=== PATIENT | female | born 1950 | race Caucasian/White ===

== ENCOUNTER 2016-11-10 12:49 | Emergency (ER) | payer BC ==
[2016-11-10 12:55] VITALS: BP 137/80
[2016-11-10 13:14] LABS: BILIRUBIN,URINE NEGATIVE (NEGATIVE); PH,URINE 5.5 PH (5.0-7.5)
[2016-11-10 13:15] LABS: UA CHARGE (STRIP ONLY) YES; UR CULTURE IF IND NOT INDICATED
--- NOTE | 2016-11-10 13:18 | ED Physician Documentation ---
PD HPI FEMALE - Stated complaint Stated Complaint: FEMALE - Chief complaint Chief Complaint: UTI - History obtained from History obtained from: Patient - History of Present Illness Timing - onset: How many days ago (1) Timing - duration: Days (1) Timing - details: Gradual onset Pain level max: 2 Pain level max: 2 Associated symptoms: Dysuria, Urinary frequency. No: Fever, Chest/shoulder pain , Abdominal pain, Back pain, Pelvic pain, Vaginal pain, Vaginal bleeding, Vaginal discharge Similar symptoms before: Diagnosis (interstitial cystitis vs UTI.) Recently seen: Not recently seen Review of Systems Constitutional: denies: Fever, Chills Nose: denies: Rhinorrhea / runny nose, Congestion Respiratory: denies: Cough GI: denies: Abdominal Pain, Nausea, Vomiting, Diarrhea Skin: denies: Rash Musculoskeletal: denies: Neck pain, Back pain PD PAST MEDICAL HISTORY - Past Medical History Past Medical History: Yes - Past Surgical History Past Surgical History: Yes General: Appendectomy - Present Medications Home Medications: Ambulatory Orders Medication Instructions Recorded Confirmed Ascorbic Acid [Vitamin C] 1,000 mg 11/13/14 11/13/14 Cholecalciferol (Vitamin D3) 2,000 unit 11/13/14 11/13/14 [Vitamin D] Estradiol [Minivelle] 1 patch 11/13/14 11/13/14 Estradiol [Vagifem] 10 mg 11/13/14 11/13/14 Hydroxyzine HCl 25 mg 11/13/14 11/13/14 Levothyroxine [Synthroid] 100 mcg 11/13/14 11/13/14 Mirabegron [Myrbetriq] 50 mg 11/13/14 11/13/14 Nitrofurantoin Macrocrystal 50 mg 11/13/14 11/13/14 [Macrodantin] Progesterone,Micronized 100 mg 11/13/14 11/13/14 [Progesterone] Urebel 118 mg 11/13/14 11/13/14 - Allergies Allergies/Adverse Reactions: Allergies Allergy/AdvReac Type Severity Reaction Status Date / Time No Known Drug Allergies Allergy Verified 11/10/16 12:55 - Social History Does the pt smoke?: No Smoking Status: Never smoker Does the pt drink ETOH?: Yes Does the pt have substance abuse?: No - Immunizations Immunizations are current?: Yes - POLST Patient has POLST: No PD ED PE NORMAL - Vitals Vital signs reviewed: Yes - General General: Alert and oriented X 3, No acute distress - Cardiac Cardiac: RRR - Respiratory Respiratory: No respiratory distress, Clear bilaterally - Abdomen Abdomen: Soft, Non tender, Non distended - Back Back: No CVA TTP, No spinal TTP - Derm Derm: Warm and dry - Neuro Neuro: Alert and oriented X 3 - Psych Psych: Normal mood, Normal affect Results - Vitals Vitals: Vital Signs - 24 hr 11/10/16 12:53 Temperature 36.5 C Heart Rate 90 Respiratory 14 Rate Blood Pressure 137/80 H O2 Saturation 100 Oxygen O2 Source Room air - Labs Labs: Laboratory Tests 11/10/16 13:05 Urine Color GREEN Urine Clarity CLEAR Urine pH 5.5 Ur Specific [place] 1.025 Urine Protein NEGATIVE Urine Glucose (UA) NEGATIVE Urine Ketones NEGATIVE Urine Occult Blood NEGATIVE Urine Nitrite NEGATIVE Urine Bilirubin NEGATIVE Urine Urobilinogen 0.2 (NORMAL) Ur Leukocyte Esterase NEGATIVE Ur Microscopic Review NOT INDICATED Urine Culture Comments NOT INDICATED PD MEDICAL DECISION MAKING - ED course Complexity details: reviewed old records, reviewed results, re-evaluated patient , considered differential, d/w patient ED course: Patient is a 66-year-old female who presents to the emergency department with dysuria and frequency. She does not have any evidence of UTI on urinalysis. Likely flare of her interstitial cystitis. Will continue her current medications at home and follow-up with her doctor. She is otherwise well- appearing, nontoxic. Afebrile. Patient counseled regarding signs and symptoms for which I believe and urgent re-evaluation would be necessary. Patient with good understanding of and agreement to plan and is comfortable going home at this time This document was made in part using voice recognition software. While efforts are made to proofread this document, sound alike and grammatical errors may occur. Departure - Departure Disposition: 01 Home, Self Care Clinical Impression: Interstitial cystitis Condition: Good Instructions: Cystitis Interstitial Life Changes, Cystitis Interstitial Follow-Up: Tano Samuel MD [Primary Care Provider] - Within 1 week Comments: Your urinalysis is normal today. This pain appears related to your IC. Follow up with your doctor for further evaluation and care. Discharge Date/Time: 11/10/16 13:45
[2016-11-10] MEDS ORDERED: oxyCOD/ACETAMIN 5 MG/325 MG TABLET PO STA (13:33)
[2016-11-10] MEDS ORDERED: oxyCOD/ACETAMIN 5 MG/325 MG TABLET PO ONE (13:39)
== END 2016-11-10 13:45 | disposition home or self-care (01) ==
LOC: ED 12:49
DX: N30.10 Interstitial cystitis (chronic) without hematuria (principal)
CPT/HCPCS: 81003; 99283; A9270; 81001; 87086

== ENCOUNTER 2018-02-18 12:40 | Emergency (ER) | payer MEDICARE, BC ==
[2018-02-18] MEDS ORDERED: SODIUM CHLORIDE 0.9% 1,000 ML IV ONE (13:44)
[2018-02-18] MEDS ORDERED: MORPHINE 2 MG/ML CARPUJECT IVP STA (13:44)
[2018-02-18] MEDS ORDERED: ONDANSETRON 4 MG/2 ML VIAL IVP STA (13:44)
--- NOTE | 2018-02-18 14:37 | ED Physician Documentation ---
PD HPI ABD PAIN - Stated complaint Stated Complaint: AB PX - Chief complaint Chief Complaint: Abd Pain - History obtained from History obtained from: Patient, Family - History of Present Illness Timing - onset: Yesterday Timing - duration: Days (2) Timing - details: Gradual onset Pain level max: 6 Pain level now: 5 Quality: Cramping, Aching, Pain Location: All over / everywhere Improved by: Vomiting Worsened by: Eating Associated symptoms: Nausea, Vomiting, Diarrhea Similar symptoms before: Other (diverticulitis) Recently seen: Not recently seen Review of Systems Ten Systems: 10 systems reviewed and negative Constitutional: denies: Fever, Chills Ears: denies: Ear pain Nose: denies: Rhinorrhea / runny nose, Congestion Throat: denies: Sore throat : denies: Dysuria Skin: denies: Rash Musculoskeletal: denies: Neck pain, Back pain Neurologic: denies: Headache PD PAST MEDICAL HISTORY - Past Medical History Past Medical History: Yes Endocrine/Autoimmune: HyPOthyroidism - Past Surgical History Past Surgical History: Yes General: Appendectomy - Present Medications Home Medications: Ambulatory Orders Medication Instructions Recorded Confirmed Ascorbic Acid [Vitamin C] 1,000 mg 11/13/14 11/13/14 Cholecalciferol (Vitamin D3) 2,000 unit 11/13/14 11/13/14 [Vitamin D] Estradiol [Minivelle] 1 patch 11/13/14 11/13/14 Estradiol [Vagifem] 10 mg 11/13/14 11/13/14 Levothyroxine [Synthroid] 100 mcg 11/13/14 11/13/14 Mirabegron [Myrbetriq] 50 mg 11/13/14 11/13/14 Nitrofurantoin Macrocrystal 50 mg 11/13/14 11/13/14 [Macrodantin] Progesterone,Micronized 100 mg 11/13/14 11/13/14 [Progesterone] Urebel 118 mg 11/13/14 11/13/14 hydrOXYzine HCl [Hydroxyzine HCl] 25 mg 11/13/14 11/13/14 Hydrocodone/Acetaminophen 1 - 2 each PO Q6H PRN #14 tablet 02/18/18 [Hydrocodon-Acetaminophen 5-325] Ondansetron Odt [Zofran] 4 mg TL Q6H PRN #10 tablet 02/18/18 Vancomycin [Vancocin] 125 mg PO QID #40 capsule 02/18/18 - Allergies Allergies/Adverse Reactions: Allergies Allergy/AdvReac Type Severity Reaction Status Date / Time No Known Drug Allergies Allergy Verified 02/18/18 12:53 - Social History Does the pt smoke?: No Smoking Status: Never smoker Does the pt drink ETOH?: Yes Does the pt have substance abuse?: No - Immunizations Immunizations are current?: Yes - POLST Patient has POLST: No PD ED PE NORMAL - Vitals Vital signs reviewed: Yes - General General: Alert and oriented X 3, No acute distress - HEENT HEENT: Moist mucous membranes - Neck Neck: Supple, no meningeal sign - Cardiac Cardiac: RRR, Strong equal pulses - Respiratory Respiratory: No respiratory distress, Clear bilaterally - Abdomen Abdomen: Soft, Non distended, Other (mild diffuse TTP without peritoneal signs) - Derm Derm: Warm and dry - Extremities Extremities: No edema - Neuro Neuro: Alert and oriented X 3 - Psych Psych: Normal mood, Normal affect Results - Vitals Vitals: Vital Signs - 24 hr 02/18/18 02/18/18 12:50 16:24 Temperature 35.7 C L 36.9 C Heart Rate 93 75 Respiratory 15 20 Rate Blood Pressure 137/94 H 146/82 H O2 Saturation 97 97 Oxygen O2 Source Room air - Labs Labs: Microbiology 02/18/18 14:47 Clostridium difficile (PCR) - Final Stool Laboratory Tests 02/18/18 02/18/18 02/18/18 14:37 14:37 14:47 WBC 9.8 RBC 4.96 Hgb 15.6 Hct 45.2 MCV 91.1 MCH 31.5 H MCHC 34.6 RDW 15.2 H Plt Count 217 MPV 8.1 Neut # (Auto) 7.0 H Lymph # (Auto) 2.1 [place] # (Auto) 0.7 Eos # (Auto) 0.0 Baso # (Auto) 0.0 Absolute Nucleated RBC 0.00 Nucleated RBC % 0.0 Sodium 138 Potassium 3.5 Chloride 104 Carbon Dioxide 26 Anion Gap 8.0 BUN 14 Creatinine 0.9 Estimated GFR (MDRD) 63 L Glucose 96 Calcium 8.7 Total Bilirubin 1.2 H AST 25 ALT 25 Alkaline Phosphatase 68 Total Protein 7.3 Albumin 4.2 Globulin 3.1 Albumin/Globulin Ratio 1.4 Lipase 27 Urine Color YELLOW Urine Clarity CLEAR Urine pH 6.5 Ur Specific [place] 1.010 Urine Protein NEGATIVE Urine Glucose (UA) NEGATIVE Urine Ketones NEGATIVE Urine Occult Blood NEGATIVE Urine Nitrite NEGATIVE Urine Bilirubin NEGATIVE Urine Urobilinogen 0.2 (NORMAL) Ur Leukocyte Esterase NEGATIVE Ur Microscopic Review NOT INDICATED Urine Culture Comments NOT INDICATED - Rads (name of study) abd/pelvis CT Radiology: Prelim report reviewed, EMP read contemporaneously, See rad report (Colitis, involving the proximal transverse through mid sigmoid colon) PD MEDICAL DECISION MAKING - ED course Complexity details: reviewed results, re-evaluated patient, considered differential, d/w patient, d/w family ED course: Patient is a 67-year-old female who presents to the emergency department with colitis. Positive C. difficile. Will start on oral vancomycin. Normal white count. Pain well controlled. No vomiting in the emergency department. Well- appearing, nontoxic. Discussed the case with her GI in [place] at her request. Patient counseled regarding signs and symptoms for which I believe and urgent re-evaluation would be necessary. Patient with good understanding of and agreement to plan and is comfortable going home at this time This document was made in part using voice recognition software. While efforts are made to proofread this document, sound alike and grammatical errors may occur. Departure - Departure Disposition: 01 Home, Self Care Clinical Impression: Clostridium difficile colitis Condition: Good Instructions: Clostridium Difficile Toxin Stool, Clostridium Difficile Infec Follow-Up: Tano Samuel MD [Primary Care Provider] - Within 1 week Prescriptions: Hydrocodone/Acetaminophen [Hydrocodon-Acetaminophen 5-325] 1 - 2 each PO Q6H PRN #14 tablet PRN Reason: pain Ondansetron Odt [Zofran] 4 mg TL Q6H PRN #10 tablet PRN Reason: Nausea / Vomiting Vancomycin [Vancocin] 125 mg PO QID #40 capsule Comments: Take all antibiotics until gone. Return if you worsen. This should improve with the antibiotics. Do not drink alcohol or drive while on narcotic pain medicine. Note that many narcotic pain relievers also contain tylenol/acetaminophen. Please ensure that your total dose of acetaminophen from all sources does not exceed 3 grams (3000mg) per day. You may constipated on this medication, take a stool softener such as "Colace" twice a day while you are on it. Also recommend a dxkk-opu-cllkzur laxative such as senna or MiraLAX any day that you do not have a bowel movement. If you received narcotic pain medication in the emergency department, do not drive or operate machinery for the next 24 hours. Discharge Date/Time: 02/18/18 17:25
[2018-02-18 14:41] LABS: BASOPHILS % (AUTO) 0.3 %; EOSINOPHILS % (AUTO) 0.3 %; HGB - HEMOGLOBIN 15.6 g/dL (12.0-16.0); LYMPHOCYTES # (AUTO) 2.1 10^3/uL (1.5-3.5); LYMPHOCYTES % (AUTO) 21.1 %; MEAN CORPUSCULAR HEMOGLOBIN 31.5 pg (27.0-31.0); MEAN CORPUSCULAR HGB CONC 34.6 g/dL (32.0-36.0); MEAN CORPUSCULAR VOLUME 91.1 fL (81.0-99.0); MEAN PLATELET VOLUME 8.1 fL (7.9-10.8); MONOCYTES # (AUTO) 0.7 10^3/uL (0.0-1.0); MONOCYTES % (AUTO) 6.8 %; NEUTROPHILS % (AUTO) 71.5 %; PLT - PLATELET COUNT 217 10^3/uL (130-450); RED BLOOD COUNT 4.96 10^6/uL (4.20-5.40); RED CELL DISTRIBUTION WIDTH 15.2 % (12.0-15.0); WHITE BLOOD COUNT 9.8 x10^3/uL (4.8-10.8)
[2018-02-18 14:52] LABS: BILIRUBIN,URINE NEGATIVE (NEGATIVE); GLUCOSE, URINE (UA) NEGATIVE (NEGATIVE); KETONES,URINE (UA) NEGATIVE (NEGATIVE); LEUKOCYTE ESTERASE, URINE NEGATIVE (NEGATIVE); NITRITE,URINE NEGATIVE (NEGATIVE); OCCULT BLOOD,URINE NEGATIVE (NEGATIVE); PH,URINE 6.5 PH (5.0-7.5); PROTEIN,URINE NEGATIVE (NEGATIVE); UROBILINOGEN,URINE 0.2 (NORMAL) E.U./dL (NORMAL)
[2018-02-18 14:53] LABS: CLARITY,URINE CLEAR (CLEAR)
[2018-02-18 14:55] LABS: ALBUMIN 4.2 g/dL (3.2-5.5); ALBUMIN/GLOBULIN RATIO 1.4 (1.0-2.2); BILIRUBIN,TOTAL 1.2 mg/dL (0.2-1.0); CALCIUM 8.7 mg/dL (8.5-10.3); CREATININE 0.9 mg/dL (0.4-1.0); TOTAL PROTEIN 7.3 g/dL (6.7-8.2)
[2018-02-18] MEDS ORDERED: IOPAMIDOL-300 100 ML VIAL ONE (15:17)
[2018-02-18] MEDS ORDERED: IOPAMIDOL-300 100 ML VIAL IVP ONE (15:43)
--- NOTE | 2018-02-18 16:15 | CT Report ---
Reason: diffuse abd pain, diarrhea, hematochezia Procedure Date: 02/18/2018 Accession Number: [id number] / [id number] Procedure: CT - Abdomen/Pelvis W/ CPT Code: FULL RESULT: EXAM: CT ABDOMEN AND PELVIS EXAM DATE: 02/18/2018 03:39 PM. CLINICAL HISTORY: Diffuse abdominal pain, diarrhea, hematochezia. COMPARISONS: None. TECHNIQUE: Routine helical CT imaging was performed through the abdomen and pelvis. IV contrast: ISOVUE 300 100mL. Enteric contrast: No. Reconstructions: Coronal and sagittal. In accordance with CT protocol optimization, one or more of the following dose reduction techniques were utilized for this exam: automated exposure control, adjustment of mA and/or KV based on patient size, or use of iterative reconstructive technique. FINDINGS: Lung Bases: Clear. Liver: Normal. No focal hepatic lesion. Gallbladder/Bile Ducts: Unremarkable. No visualized stones or biliary ductal dilatation. Spleen: Normal. Pancreas: Normal. Adrenal Glands: Normal. Kidneys and Ureters: 0.8 cm round hypoattenuating focus in the interpolar cortex likely represents a cyst (3/). Notable left parapelvic cysts. No stones, hydronephrosis, or hydroureter. Peritoneal Cavity/Bowel: Colon wall thickening with subtle adjacent mesenteric hyperemia, involving the transverse through mid sigmoid colonic, indicating colitis. The appendix is surgically absent. No free fluid, pneumoperitoneum, or adenopathy. Pelvic Organs: The bladder, uterus, and ovaries are within normal limits. Vasculature: Unremarkable. The visualized mesenteric vessels are patent. Bones: Transitional partially sacralized L5 vertebral body with right pseudoarthrosis. Multilevel degenerative disk disease, most pronounced and severe at L4-L5. No acute bony abnormality. Other: None. IMPRESSION: Colitis, involving the proximal transverse through mid sigmoid colon. RADIA
[2018-02-18 16:26] VITALS: BP 146/82
[2018-02-18] MEDS ORDERED: VANCOMYCIN 125 MG CAPSULE PO STA (16:44)
== END 2018-02-18 17:25 | disposition home or self-care (01) ==
LOC: ED 12:40
DX: A04.72 Enterocolitis due to Clostridium difficile, not specified as recurrent (principal)
CPT/HCPCS: 36415; 74177; 80053; 81003; 83690; 85025; 87493; 96361; 96374; 96375; 99283; 99284; J8499; Q9967; 81001; 87086

== ENCOUNTER 2018-11-18 14:21 | Emergency (ER) | payer MEDICARE, BC ==
[2018-11-18 14:30] VITALS: BP 160/97
--- NOTE | 2018-11-18 14:35 | ED Physician Documentation ---
History of Present Illness - Stated complaint Stated Complaint: BURNING,FREQUENCY,CRAMPING - Chief complaint Chief Complaint: UTI - History obtained from History obtained from: Patient - Additonal information Additional information: Patient is a 68-year-old female with history of interstitial cystitis and other significant comorbidities presenting with symptoms of UTI, specifically dysuria, Incomplete emptying, frequency, and pressure without hematuria over the past several days. Patient had recently started prophylactic Macrobid and takes multiple other medications to attempt to avoid UTI flares. Patient also takes narcotic pain medications for pain control at home, as well as occasional Pyridium. Patient does report suprapubic abdominal pain without back pain, fever, nausea, vomiting, or stool changes. Patient has primary care follow-up scheduled in the next 2 days. No other improving or worsening factors noted. Review of Systems Constitutional: denies: Fever GI: reports: Abdominal Pain. denies: Nausea, Vomiting, Diarrhea : reports: Dysuria, Frequency, Unable to Void. denies: Hematuria Musculoskeletal: denies: Back pain PD PAST MEDICAL HISTORY - Past Medical History Past Medical History: Yes Endocrine/Autoimmune: HyPOthyroidism Other Past Medical History: Interstitial cystitis - Past Surgical History Past Surgical History: Yes General: Appendectomy - Present Medications Home Medications: Ambulatory Orders Medication Instructions Recorded Confirmed Ascorbic Acid [Vitamin C] 1,000 mg 11/13/14 11/13/14 Cholecalciferol (Vitamin D3) 2,000 unit 11/13/14 11/13/14 [Vitamin D] Estradiol [Minivelle] 1 patch 11/13/14 11/13/14 Estradiol [Vagifem] 10 mg 11/13/14 11/13/14 Levothyroxine [Synthroid] 100 mcg 11/13/14 11/13/14 Nitrofurantoin Macrocrystal 50 mg 11/13/14 11/13/14 [Macrodantin] Progesterone,Micronized 100 mg 11/13/14 11/13/14 [Progesterone] Urebel 118 mg 11/13/14 11/13/14 hydrOXYzine HCl [Hydroxyzine HCl] 25 mg 11/13/14 11/13/14 LORazepam [Ativan] 1 mg PO ONCE 11/18/18 11/18/18 Sulfamethox/Trimeth 800/160 1 each PO BID #14 tablet 11/18/18 [Bactrim Ds 800/160] Zolpidem [Ambien] 5 mg PO HS 11/18/18 11/18/18 hydrOXYzine HCl [Hydroxyzine HCl] 50 mg PO 11/18/18 11/18/18 oxyCODONE/ACET 5/325 [Percocet 5 1 each PO Q4-6H 11/18/18 11/18/18 mg/325 mg] - Allergies Allergies/Adverse Reactions: Allergies Allergy/AdvReac Type Severity Reaction Status Date / Time No Known Drug Allergies Allergy Verified 11/18/18 14:30 - Social History Does the pt smoke?: No Smoking Status: Never smoker Does the pt drink ETOH?: Yes Does the pt have substance abuse?: No - Immunizations Immunizations are current?: Yes - POLST Patient has POLST: No PD ED PE NORMAL - Vitals Vital signs reviewed: Yes - General General: Alert and oriented X 3, No acute distress, Well developed/nourished - HEENT HEENT: Atraumatic, Moist mucous membranes - Neck Neck: Supple, no meningeal sign - Respiratory Respiratory: No respiratory distress - Abdomen Abdomen: Soft, Non distended. No: Non tender (Extremely mild suprapubic tenderness) - Back Back: No CVA TTP - Derm Derm: Normal color, Warm and dry, No rash - Extremities Extremities: No deformity, No tenderness to palpate - Neuro Neuro: Alert and oriented X 3, No motor deficit, No sensory deficit - Psych Psych: Normal mood, Normal affect Results - Vitals Vitals: Vital Signs - 24 hr 11/18/18 14:28 Temperature 36.1 C L Heart Rate 77 Respiratory 18 Rate Blood Pressure 160/97 H O2 Saturation 96 Oxygen O2 Source Room air - Labs Labs: Laboratory Tests 11/18/18 14:15 Urine Color ORANGE Urine Clarity CLEAR Urine pH 5.0 Ur Specific [place] 1.010 Urine Protein Urine Glucose (UA) Urine Ketones NEGATIVE Urine Occult Blood NEGATIVE Urine Nitrite Urine Bilirubin NEGATIVE Urine Urobilinogen Ur Leukocyte Esterase Urine RBC None Seen Urine WBC 0-3 Ur Squamous Epith Cells MANY Squamous H Urine Bacteria None Seen Ur Microscopic Review INDICATED Urine Culture Comments NOT INDICATED PD MEDICAL DECISION MAKING - ED course Complexity details: reviewed results, re-evaluated patient, considered differential, d/w patient ED course: Patient presenting with UTI-like symptoms that are worse than her usual symptoms. Patient has known underlying interstitial cystitis and has had a complicated course regarding control of this issue. Patient has been chronically taking Macrobid for about 1 month. Patient also has Percocet and Pyridium available to her at home which she took this morning. Given patient's physical exam and complaints, lower suspicion for pyelonephritis or nephrolithiasis, as well as any other intra-abdominal or pelvic pathology at this time, but considered. Urine sample obtained and was difficult to assess given coloration from Pyridium, but no significant bacteria or white blood cells found. Had lengthy discussions with patient regarding continued medical therapy as is as opposed to changing antibiotic from Macrobid to Bactrim. At this time, patient plans to continue as is but is requesting Bactrim prescription in case she changes her mind. Patient will also follow-up on Tuesday. Discussed other supportive cares and return precautions. Patient voiced understanding and is comfortable with discharge plan. Departure - Departure Disposition: Home, Self Care Clinical Impression: Urinary tract infection Qualifiers: Urinary tract infection type: site unspecified Hematuria presence: without hematuria Qualified Code(s): N39.0 - Urinary tract infection, site not specified Instructions: ED UTI Cystitis Female Follow-Up: Tano Samuel MD [Primary Care Provider] - Within 3 Days Prescriptions: Sulfamethox/Trimeth 800/160 [Bactrim Ds 800/160] 1 each PO BID #14 tablet Comments: Please continue all home medications as previously instructed. Please follow-up with your primary care physician on Tuesday and consider contacting urologist at that time as well. If you decide, may start Bactrim as prescribed. If you take Bactrim, please do not continue Macrobid. Otherwise, continue Macrobid as instructed. Return to ED sooner if experience worsening symptoms or have other concerns.
[2018-11-18 14:50] LABS: KETONES,URINE (UA) NEGATIVE (NEGATIVE); OCCULT BLOOD,URINE NEGATIVE (NEGATIVE)
[2018-11-18 15:01] LABS: CLARITY,URINE CLEAR (CLEAR)
[2018-11-18 15:02] LABS: BILIRUBIN,URINE NEGATIVE (NEGATIVE); ICTOTEST,URINE NEGATIVE
[2018-11-18 15:03] LABS: BACTERIA,URINE None Seen /HPF (None Seen); RBC,URINE None Seen /HPF (0-5); SQUAMOUS EPITHELIAL CELL,UR MANY Squamous (<= Few)
== END 2018-11-18 15:25 | disposition home or self-care (01) ==
LOC: ED 14:21
DX: N39.0 Urinary tract infection, site not specified (principal)
CPT/HCPCS: 81001; 81003; 87086; 99283; 99284

== ENCOUNTER 2018-12-11 13:21 | Emergency (ER) | payer MEDICARE, BC ==
[2018-12-11 13:44] LABS: BILIRUBIN,URINE NEGATIVE (NEGATIVE); GLUCOSE, URINE (UA) NEGATIVE (NEGATIVE); KETONES,URINE (UA) NEGATIVE (NEGATIVE); LEUKOCYTE ESTERASE, URINE NEGATIVE (NEGATIVE); NITRITE,URINE NEGATIVE (NEGATIVE); OCCULT BLOOD,URINE NEGATIVE (NEGATIVE); PROTEIN,URINE NEGATIVE (NEGATIVE); UROBILINOGEN,URINE 0.2 (NORMAL) E.U./dL (NORMAL)
[2018-12-11 13:46] LABS: CLARITY,URINE CLEAR (CLEAR)
--- NOTE | 2018-12-11 14:15 | ED Physician Documentation ---
"History of Present Illness - Stated complaint Stated Complaint: FEM - Chief complaint Chief Complaint: UTI - History obtained from History obtained from: Patient - History of Present Illness Timing: How many weeks ago (2) Pain level max: 5 Pain level now: 4 Worsened by: urination - Additonal information Additional information: 68 year old female with IC and frequent UTI. states frequency, urgency for past 2 weeks. on macrobid. 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 Sees urology in [place]. Percocet at home makes this better Review of Systems Ten Systems: 10 systems reviewed and negative Constitutional: denies: Fever, Chills Respiratory: denies: Cough GI: denies: Vomiting, Diarrhea Skin: denies: Rash Musculoskeletal: denies: Neck pain, Back pain Neurologic: denies: Headache PD PAST MEDICAL HISTORY - Past Medical History Past Medical History: Yes Endocrine/Autoimmune: HyPOthyroidism : Other Other Past Medical History: hx interstitial cystitis - Past Surgical History Past Surgical History: Yes General: Appendectomy - Present Medications Home Medications: Ambulatory Orders Medication Instructions Recorded Confirmed Ascorbic Acid [Vitamin C] 1,000 mg 11/13/14 11/13/14 Cholecalciferol (Vitamin D3) 2,000 unit 11/13/14 11/13/14 [Vitamin D] Estradiol [Minivelle] 1 patch 11/13/14 11/13/14 Estradiol [Vagifem] 10 mg 11/13/14 11/13/14 Levothyroxine [Synthroid] 100 mcg 11/13/14 11/13/14 Nitrofurantoin Macrocrystal 50 mg 11/13/14 11/13/14 [Macrodantin] Progesterone,Micronized 100 mg 11/13/14 11/13/14 [Progesterone] Urebel 118 mg 11/13/14 11/13/14 hydrOXYzine HCl [Hydroxyzine HCl] 25 mg 11/13/14 11/13/14 LORazepam [Ativan] 1 mg PO ONCE 11/18/18 11/18/18 Sulfamethox/Trimeth 800/160 1 each PO BID #14 tablet 11/18/18 [Bactrim Ds 800/160] Zolpidem [Ambien] 5 mg PO HS 11/18/18 11/18/18 hydrOXYzine HCl [Hydroxyzine HCl] 50 mg PO 11/18/18 11/18/18 oxyCODONE/ACET 5/325 [Percocet 5 1 each PO Q4-6H 11/18/18 11/18/18 mg/325 mg] Amoxicillin 500 mg PO BID #10 capsule 12/11/18 - Allergies Allergies/Adverse Reactions: Allergies Allergy/AdvReac Type Severity Reaction Status Date / Time No Known Drug Allergies Allergy Verified 11/18/18 14:30 - Social History Does the pt smoke?: No Smoking Status: Never smoker Does the pt drink ETOH?: Yes Does the pt have substance abuse?: No - Immunizations Immunizations are current?: Yes - POLST Patient has POLST: No PD ED PE NORMAL - Vitals Vital signs reviewed: Yes - General General: Alert and oriented X 3, No acute distress, Well developed/nourished - HEENT HEENT: Moist mucous membranes - Neck Neck: Supple, no meningeal sign - Cardiac Cardiac: RRR, Strong equal pulses - Respiratory Respiratory: No respiratory distress, Clear bilaterally - Abdomen Abdomen: Soft, Non tender, Non distended - Back Back: No CVA TTP - Derm Derm: Warm and dry - Neuro Neuro: Alert and oriented X 3 - Psych Psych: Normal mood, Normal affect Results - Vitals Vitals: Vital Signs - 24 hr 12/11/18 12/11/18 13:35 14:26 Temperature 35.5 C L 36 C L Heart Rate 83 85 Respiratory 18 18 Rate Blood Pressure 96/53 L 106/62 O2 Saturation 98 99 Oxygen O2 Source Room air - Labs Labs: Laboratory Tests 12/11/18 13:30 Urine Color GREEN Urine Clarity CLEAR Urine pH 6.0 Ur Specific [place] <=1.005 Urine Protein NEGATIVE Urine Glucose (UA) NEGATIVE Urine Ketones NEGATIVE Urine Occult Blood NEGATIVE Urine Nitrite NEGATIVE Urine Bilirubin NEGATIVE Urine Urobilinogen 0.2 (NORMAL) Ur Leukocyte Esterase NEGATIVE Ur Microscopic Review NOT INDICATED Urine Culture Comments NOT INDICATED PD MEDICAL DECISION MAKING - ED course Complexity details: reviewed old records, reviewed results, considered differential, d/w patient ED course: 68-year-old female With UTI symptoms. Possible interstitial cystitis. She has a recent urine culture report that reports she has 3 pathogens, she has not been treated since this report, therefore we will treat her with amoxicillin. She is well-appearing, nontoxic. Afebrile. She will follow-up with her urologist when she returns to [place] next week. All organisms are sensitive to am oxicillin. Patient counseled regarding signs and symptoms for which I believe and urgent re-evaluation would be necessary. Patient with good understanding of and agreement to plan and is comfortable going home at this time This document was made in part using voice recognition software. While efforts are made to proofread this document, sound alike and grammatical errors may occur. Departure - Departure Disposition: Home, Self Care Clinical Impression: Interstitial cystitis Urinary tract infection Qualifiers: Urinary tract infection type: acute cystitis Hematuria presence: without hematuria Qualified Code(s): N30.00 - Acute cystitis without hematuria Condition: Good Instructions: ED UTI Cystitis Female Follow-Up: your,doctor in 1 week [Other] Prescriptions: Amoxicillin 500 mg PO BID #10 capsule Comments: Your prescription was sent to [facility] in [place]. Use antibiotics as prescribed. Follow-up with your urologist for further care. Your urologist may want to discuss antibiotic installations into your bladder to help with potential colonization. Return if you worsen Discharge Date/Time: 12/11/18 14:26"
[2018-12-11 14:27] VITALS: BP 106/62
== END 2018-12-11 14:26 | disposition home or self-care (01) ==
LOC: ED 13:21
DX: N30.00 Acute cystitis without hematuria (principal); N30.10 Interstitial cystitis (chronic) without hematuria
CPT/HCPCS: 81001; 81003; 87086; 99283

== ENCOUNTER 2021-01-09 16:40 | Outpatient (CLI) | payer MEDICARE, BC ==
[2021-01-09 19:58] LABS: BILIRUBIN,URINE NEGATIVE (NEGATIVE); GLUCOSE, URINE (UA) NEGATIVE (NEGATIVE); KETONES,URINE (UA) NEGATIVE (NEGATIVE); LEUKOCYTE ESTERASE, URINE NEGATIVE (NEGATIVE); NITRITE,URINE NEGATIVE (NEGATIVE); OCCULT BLOOD,URINE NEGATIVE (NEGATIVE); PH,URINE 5.5 PH (5.0-7.5); PROTEIN,URINE NEGATIVE (NEGATIVE); UROBILINOGEN,URINE 0.2 (NORMAL) E.U./dL (NORMAL)
[2021-01-09 20:04] LABS: BACTERIA,URINE Rare /HPF (None Seen); CLARITY,URINE CLEAR (CLEAR); RBC,URINE 0-5 /HPF (0-5); SQUAMOUS EPITHELIAL CELL,UR FEW Squamous (<= Few); WBC,URINE 0-3 /HPF (0-5)
== END 2021-01-09 23:59 | disposition home or self-care (01) ==
LOC: LAB.S 16:40
PROVIDERS: ATTEND Emergency Medicine
DX: R30.0 Dysuria (principal)
CPT/HCPCS: 81001; 87086

== ENCOUNTER 2021-11-03 08:00 | Outpatient (CLI) | payer MEDICARE, BC ==
[2021-11-03 20:24] LABS: BILIRUBIN,URINE NEGATIVE (NEGATIVE); CLARITY,URINE CLEAR (CLEAR); GLUCOSE, URINE (UA) NEGATIVE (NEGATIVE); KETONES,URINE (UA) NEGATIVE (NEGATIVE); LEUKOCYTE ESTERASE, URINE NEGATIVE (NEGATIVE); NITRITE,URINE NEGATIVE (NEGATIVE); OCCULT BLOOD,URINE NEGATIVE (NEGATIVE); PH,URINE 6.5 PH (5.0-7.5); PROTEIN,URINE NEGATIVE (NEGATIVE); UROBILINOGEN,URINE 0.2 (NORMAL) E.U./dL (NORMAL)
[2021-11-03 20:35] LABS: BACTERIA,URINE Rare /HPF (None Seen); MUCUS,URINE Few Strands; RBC,URINE 0-5 /HPF (0-5); SQUAMOUS EPITHELIAL CELL,UR MOD Squamous (<= Few); WBC,URINE 0-3 /HPF (0-5)
== END 2021-11-03 23:59 | disposition home or self-care (01) ==
LOC: LAB 08:00
PROVIDERS: ATTEND Physician Assistant Medical
DX: R30.0 Dysuria (principal)
CPT/HCPCS: 81001; 87086

== ENCOUNTER 2023-10-21 07:00 | Outpatient (CLI) | payer MEDICARE, BC | END 2023-10-21 23:59 | disposition home or self-care (01) | LOC: LAB.S 07:00 | PROVIDERS: ATTEND Emergency Medicine | DX: N30.30 Trigonitis without hematuria (principal) | CPT/HCPCS: 87086 ==

== ENCOUNTER 2023-11-07 14:14 | Emergency (ER) | payer MEDICARE, BC ==
[2023-11-07 15:24] LABS: BASOPHILS # (AUTO) 0.1 10^3/uL (0.0-0.1); BASOPHILS % (AUTO) 0.3 %; HCT - HEMATOCRIT 45.6 % (37.0-47.0); HGB - HEMOGLOBIN 15.6 g/dL (12.0-16.0); LYMPHOCYTES # (AUTO) 1.6 10^3/uL (1.5-3.5); LYMPHOCYTES % (AUTO) 9.6 %; MEAN CORPUSCULAR HEMOGLOBIN 30.4 pg (27.0-31.0); MEAN CORPUSCULAR HGB CONC 34.2 g/dL (32.0-36.0); MEAN CORPUSCULAR VOLUME 88.7 fL (81.0-99.0); MEAN PLATELET VOLUME 10.3 fL (7.9-10.8); MONOCYTES # (AUTO) 1.1 10^3/uL (0.0-1.0); MONOCYTES % (AUTO) 6.5 %; PLT - PLATELET COUNT 172 10^3/uL (130-450); RED BLOOD COUNT 5.14 10^6/uL (4.20-5.40); RED CELL DISTRIBUTION WIDTH 14.2 % (12.0-15.0); WHITE BLOOD COUNT 16.9 x10^3/uL (4.8-10.8)
[2023-11-07 15:32] LABS: ALBUMIN 4.2 g/dL (3.2-5.5); ALBUMIN/GLOBULIN RATIO 1.4 (1.0-2.2); BILIRUBIN,TOTAL 0.8 mg/dL (0.2-1.0); CALCIUM 9.3 mg/dL (8.5-10.3); CREATININE 0.8 mg/dL (0.6-1.3); POTASSIUM 4.1 mmol/L (3.5-4.5); TOTAL PROTEIN 7.1 g/dL (6.4-8.9)
[2023-11-07 17:52] LABS: BILIRUBIN,URINE NEGATIVE (NEGATIVE); GLUCOSE, URINE (UA) NEGATIVE (NEGATIVE); KETONES,URINE (UA) 15 mg/dL (NEGATIVE); LEUKOCYTE ESTERASE, URINE NEGATIVE (NEGATIVE); NITRITE,URINE NEGATIVE (NEGATIVE); OCCULT BLOOD,URINE TRACE-INTA (NEGATIVE); PH,URINE 6.5 PH (5.0-7.5); PROTEIN,URINE TRACE mg/dL (NEGATIVE); UROBILINOGEN,URINE 0.2 (NORMAL) E.U./dL (NORMAL)
[2023-11-07 17:58] LABS: CLARITY,URINE CLEAR (CLEAR)
[2023-11-07] MEDS ORDERED: iohexoL-300 100 ML VIAL ONE (18:24)
--- NOTE | 2023-11-07 18:29 | ED Physician Documentation ---
PD HPI ABD PAIN - Stated complaint Stated Complaint: STOMACH PX,N/V,LIZAMA - Chief complaint Chief Complaint: Abd Pain - Additional information Additional information: 73 yo F presents w/ abd pain and nausea/dry heaving For the past 2 days. Abd ominal pain is generalized, both on the right side and the left side. Has a history of diverticulitis and also had a e.coli bacteremia in 2018 and was concerned about this. She has not had any diarrhea or constipation, normal bowel movements today, no urinary symptoms. She has not had a fever or chills, no chest pain or difficulty breathing. The patient does have a history of SIBO and IBS and was followed by GI in [place] where she lives part of the time. Review of Systems Constitutional: reports: Reviewed and negative Eyes: reports: Reviewed and negative Ears: reports: Reviewed and negative Nose: reports: Reviewed and negative Throat: reports: Reviewed and negative Cardiac: reports: Reviewed and negative Respiratory: reports: Reviewed and negative GI: reports: Abdominal Pain, Nausea. denies: Abdominal Swelling, Vomiting, Constipation, Diarrhea, Hematemesis : reports: Reviewed and negative Skin: reports: Reviewed and negative Musculoskeletal: reports: Reviewed and negative Neurologic: reports: Reviewed and negative Psychiatric: reports: Reviewed and negative PD PAST MEDICAL HISTORY - Past Medical History Past Medical History: Yes Endocrine/Autoimmune: HyPOthyroidism GI: C.difficile, Diverticulitis HEALTH CONSULTANT: Breast cancer : Other - Past Surgical History Past Surgical History: Yes General: Appendectomy /HEALTH CONSULTANT: Mastectomy - Present Medications Home Medications: Ambulatory Orders Medication Instructions Recorded Confirmed Ascorbic Acid [Vitamin C] 1,000 mg 11/13/14 11/13/14 Cholecalciferol (Vitamin D3) 2,000 unit 11/13/14 11/13/14 [Vitamin D] Estradiol [Minivelle] 1 patch 11/13/14 11/13/14 Estradiol [Vagifem] 10 mg 11/13/14 11/13/14 Levothyroxine [Synthroid] 100 mcg 11/13/14 11/13/14 Nitrofurantoin Macrocrystal 50 mg 11/13/14 11/13/14 [Macrodantin] Progesterone,Micronized 100 mg 11/13/14 11/13/14 [Progesterone] Urebel 118 mg 11/13/14 11/13/14 hydrOXYzine HCL [Hydroxyzine HCl] 25 mg 11/13/14 11/13/14 LORazepam [Ativan] 1 mg PO ONCE 11/18/18 11/18/18 Sulfamethox/Trimeth 800/160 1 each PO BID #14 tablet 11/18/18 [Bactrim Ds 800/160] Zolpidem [Ambien] 5 mg PO HS 11/18/18 11/18/18 hydrOXYzine HCL [Hydroxyzine HCl] 50 mg PO 11/18/18 11/18/18 oxyCODONE/ACET 5/325 [Percocet 5 1 each PO Q4-6H 11/18/18 11/18/18 mg/325 mg] Amoxicillin 500 mg PO BID #10 capsule 12/11/18 Famotidine [Pepcid] 20 mg PO BID #60 tablet 11/17/21 Sucralfate [Carafate] 1 gm PO ACHS #60 tablet 11/17/21 Dicyclomine [Bentyl] 10 mg PO QID #30 cap 11/07/23 HYDROcod/ACETAM 5/325 [[place] 5/325] 1 - 2 tablet PO Q6H PRN #14 tablet 11/07/23 Ondansetron Odt [Zofran] 4 mg TL Q6H PRN #10 tablet 11/07/23 - Allergies Allergies/Adverse Reactions: Allergies Allergy/AdvReac Type Severity Reaction Status Date / Time No Known Drug Allergies Allergy Verified 11/07/23 14:54 - Social History Does the pt smoke?: No Smoking Status: Never smoker Does the pt drink ETOH?: Yes Does the pt have substance abuse?: No - Immunizations Immunizations are current?: Yes - POLST Patient has POLST: No PD ED PE NORMAL - Vitals Vital signs reviewed: Yes - General General: Alert and oriented X 3, No acute distress, Well developed/nourished - HEENT HEENT: Atraumatic, Pharynx benign - Neck Neck: Supple, no meningeal sign, No JVD - Cardiac Cardiac: RRR, No murmur - Respiratory Respiratory: No respiratory distress, Clear bilaterally - Abdomen Abdomen: Normal bowel sounds, Soft, Non distended, Other (Generalized tenderness entire abdomen, though it is soft, no focal areas of tenderness, bowel sounds active nondistended) - Back Back: No CVA TTP - Derm Derm: Normal color, Warm and dry, No rash - Extremities Extremities: No deformity, No tenderness to palpate, Normal ROM s pain - Neuro Neuro: Alert and oriented X 3 Eye Opening: Spontaneous Motor: Obeys Commands Verbal: Oriented GCS Score: 15 Results - Vitals Vitals: Vital Signs - 24 hr 11/07/23 11/07/23 11/07/23 14:48 14:54 18:00 Temperature 36.3 C L Heart Rate 83 78 76 Respiratory 19 18 18 Rate Blood Pressure 165/74 H 162/78 H 148/84 H O2 Saturation 97 98 Oxygen O2 Source Room air - Labs Labs: Laboratory Tests 11/07/23 11/07/23 11/07/23 14:56 15:14 15:14 WBC 16.9 H RBC 5.14 Hgb 15.6 Hct 45.6 MCV 88.7 MCH 30.4 MCHC 34.2 RDW 14.2 Plt Count 172 MPV 10.3 Neut # (Auto) 14.0 H Lymph # (Auto) 1.6 Sully # (Auto) 1.1 H Eos # (Auto) 0.0 Baso # (Auto) 0.1 Absolute Nucleated RBC 0.00 Nucleated RBC % 0.0 Sodium 137 Potassium 4.1 Chloride 107 Carbon Dioxide 21 Anion Gap 9.0 BUN 13 Creatinine 0.8 Estimated GFR (MDRD) 71 L Glucose 136 H Calcium 9.3 Total Bilirubin 0.8 AST 14 ALT 13 Alkaline Phosphatase 81 Total Protein 7.1 Albumin 4.2 Globulin 2.9 Albumin/Globulin Ratio 1.4 Lipase 36 Urine Color GREEN Urine Clarity CLEAR Urine pH 6.5 Ur Specific [place] 1.025 Urine Protein TRACE Urine Glucose (UA) NEGATIVE Urine Ketones 15 H Urine Occult Blood TRACE-INTA Urine Nitrite NEGATIVE Urine Bilirubin NEGATIVE Urine Urobilinogen 0.2 (NORMAL) Ur Leukocyte Esterase NEGATIVE Ur Microscopic Review NOT INDICATED Urine Culture Comments NOT INDICATED - Rads (name of study) No standard instances Relevant Findings:: Final report received PD Medical Decision Making - ED course Complexity details: reviewed old records, reviewed results, re-evaluated patient, considered differential, d/w patient, d/w family ED course: This is a 73-year-old female with a history of IBS as well as SIBO and followed by GI down in [place] presents with no other abdominal pain and nausea as described in HPI. Patient is well-appearing here physical exam, afebrile nontoxic in no acute distress. She has generalized abdominal tenderness On exam without focal areas of tenderness or guarding. We therefore obtained lab work which is notable for a white blood cell count of 16,000, otherwise stable CBC CMP negative urinalysis. Proceeded with a CT abdomen pelvis which showed signs of enteritis, no bowel obstruction, no diverticulitis or other abdominal process. Discussed these findings with patient, suspect this is viral and recommended supportive measures including Tylenol as needed, have prescribed Zofran and Bentyl. Patient advised to stick with a clear liquid diet today and advance as tolerated. Anticipate improvement in symptoms in next couple of days. I did give the patient a short course of hydrocodone to use only as needed and precautions given. She was vies to return if she had a fever or worsening symptoms. Departure - Departure Disposition: 01 Home, Self Care Clinical Impression: Gastroenteritis and colitis, viral Condition: Good Instructions: ED Gastroenteritis Viral Prescriptions: Dicyclomine [Bentyl] 10 mg PO QID #30 cap HYDROcod/ACETAM 5/325 [[place] 5/325] 1 - 2 tablet PO Q6H PRN #14 tablet PRN Reason: Pain Ondansetron Odt [Zofran] 4 mg TL Q6H PRN #10 tablet PRN Reason: Nausea / Vomiting Comments: Nayana, your CT showed signs of gastroenteritis which is oftentimes a viral illness causing nausea vomiting and sometimes diarrhea. It typically goes away on its own within a few days, but if you have worsening symptoms or develop a fever or increased pain, please return to the ER. I have prescribed some medication that can help with your symptoms including Bentyl which is an antispasmodic, Zofran for nausea and hydrocodone for pain. I am prescribing a short course of narcotic pain medication for you. These are potentially dangerous and addictive medications that should be used carefully. These medications may constipate you. Take an [id number] stool softener (docusate) twice daily with plenty of water while taking these medications. If you go 24 hours without a bowel movement, take [id number] miralax, per package instructions. Do not drink or drive while taking these medications. If you received narcotic or sedating medications while in the emergency department, do not drive for 24 hours. Store this medication in a safe, secure place and out of reach of children. It is a violation of federal law to give or sell this medication to another person or to use in a manner other than prescribed. The ED will not refill narcotic prescriptions, including prescriptions lost or stolen. To dispose of unwanted medications: 1. [facility] provides a drop box for medication in pill form only (no liquids) 8:00 am to 4:30 p.m. Tuesday-Tuesday in the lobby of the [facility] [place], [address] Empty pills into ziplock bag before disposal. Call [phone] for information. 2.[employer] is a free service available to all [facility] residents. Go to [email or web address] Note that many narcotic pain relievers also contain Tylenol/acetaminophen. Please ensure that your total dose of acetaminophen from all sources does not exceed 3 g (3000 mg) per day. Forms: PCP List
[2023-11-07] MEDS: MORPHINE 2 MG/ML CARPUJECT IVP STA (18:42)
[2023-11-07] MEDS: ONDANSETRON 4 MG/2 ML VIAL IVP STA (18:42)
[2023-11-07 19:14] VITALS: BP 148/84; O2SAT 98
[2023-11-07] MEDS: iohexoL-300 100 ML VIAL IVP ONE (19:32)
--- NOTE | 2023-11-07 19:45 | CT Report ---
PROCEDURE: Abdomen/Pelvis W INDICATIONS: llq and flank pain, eval for diverticulitis CONTRAST: 100ML [id number] TECHNIQUE: After the administration of intravenous contrast, a CT scan of the abdomen and pelvis was performed. Images were recorded and evaluated at appropriate window settings. Reformats: coronal and sagittal. F or radiation dose reduction, the following was used: automated exposure control, adjustment of mA and /or kV according to patient size. COMPARISON: CT abdomen pelvis 11/17/2021 FINDINGS: Image quality: Diagnostic. Lower chest: Small pleural-based nodular opacity at the lingula measuring 5 mm new compared to 2021. Liver: No solid mass. Gallbladder: Unremarkable. Biliary tree: No intrahepatic or extrahepatic dilation, accounting for age. Spleen: No splenomegaly. Pancreas: No pancreatic ductal dilation. Adrenals: No adrenal nodule. Kidneys and ureters: No hydronephrosis. No renal cystic lesion which requires follow up. No solid mas s. Simple left ovarian cyst. Stomach, bowel and peritoneum: Diverticular present without inflammatory change. At the distal aspect of the duodenal C-loop extending to the proximal jejunum, there is small bowel inflammatory change a nd mild appearance of thickening.. No pathologic free fluid. Lymph nodes: No central or retroperitoneal adenopathy. Vessels: No infrarenal aortic aneurysm. Patent portal vein. PELVIS Reproductive organs: Unremarkable. Bladder: No abnormal wall thickening, accounting for underdistention. Pelvic lymph nodes: No pelvic adenopathy by size criteria. Bones: No aggressive osseous abnormality. Other: No significant ventral or inguinal hernia. IMPRESSION: Distal duodenal C-loop/proximal jejunal thickening with inflammatory change suggestive of enteritis. Diverticulosis. Reviewed by: Salome Trevino MD on 11/07/2023 7:43 PM PDT Approved by: Salome Trevino MD on 11/07/2023 7:43 PM PDT Station ID: [id number]
[2023-11-07] MEDS: ONDANSETRON ODT 4 MG Prepack 2 TL PRN (20:29)
[2023-11-07] MEDS: HYDROcod/ACET 5/325 Prepack 4 PO STA (20:29)
== END 2023-11-07 20:30 | disposition home or self-care (01) ==
LOC: ED 14:14
DX: A08.4 Viral intestinal infection, unspecified (principal); E03.9 Hypothyroidism, unspecified; Z85.3 Personal history of malignant neoplasm of breast; Z79.899 Other long term (current) drug therapy
CPT/HCPCS: 36415; 74177; 80053; 81003; 83690; 85025; 96374; 96375; 99284; A9270; Q9967; 81001; 87086

== ENCOUNTER 2023-12-09 14:56 | Outpatient (CLI) | payer MEDICARE, BC | END 2023-12-09 14:57 | disposition home or self-care (01) | LOC: LAB.S 14:56 | PROVIDERS: ATTEND Physician Assistant | DX: N30.30 Trigonitis without hematuria (principal) | CPT/HCPCS: 87086 ==

== ENCOUNTER 2023-12-26 08:00 | Outpatient (CLI) | payer MEDICARE, BC | END 2023-12-26 23:59 | disposition home or self-care (01) | LOC: LAB.S 08:00 | PROVIDERS: ATTEND Physician Assistant | DX: R30.0 Dysuria (principal); J06.9 Acute upper respiratory infection, unspecified | CPT/HCPCS: 87070; 87086 ==